=== PATIENT | female | born 1950 | race Caucasian/White ===

== ENCOUNTER 2020-06-26 12:28 | Outpatient (CLI) | payer MEDICARE, SELFPAY ==
--- NOTE | 2020-06-26 12:39 | US_ITS ---
WS: [id number] RENAL ULTRASOUND Urinary bladder. HISTORY: CHRONIC KIDNEY DZ-STAGE 3 COMPARISON: None available. TECHNIQUE: 2-D and color Doppler imaging of the kidney submitted. Right kidney: 9.8 cm x 4.8 cm x 5.7 cm. Normal echogenicity with no hydronephrosis or mass. Left kidney: 9.8 cm x 5.3 cm x 5.4 cm. Normal echogenicity with no hydronephrosis or mass. Aorta: Normal. Urinary Bladder: Nondistended bladder. No free fluid. US/US renal BI* [id number] IMPRESSION: Normal renal ultrasound. Nondistended urinary bladder.
== END 2020-06-26 12:29 | disposition home or self-care (01) ==
LOC: US 12:28
PROVIDERS: PCP Nurse Practitioner Family; Visit Provider Internal Medicine Nephrology
DX: N18.30 Chronic kidney disease, stage 3 unspecified (principal)
CPT/HCPCS: 76770

== ENCOUNTER 2020-07-30 15:29 | Outpatient (CLI) | payer MEDICARE, SELFPAY ==
--- NOTE | 2020-07-30 15:34 | XR_ITS ---
WS: [id number] Bone mineral density performed on a [employer], today Clinical data: ASYMPTOMATIC POSTMENOPAUSAL STATUS COMPARISON STUDY: DEXA scan, 07/22/2018. Findings: The first 4 lumbar vertebral bodies demonstrated the bone mineral density of 1.331 g/sq cm for a nettie g adult T score of 1.1. Measurement of the left hip reveals a bone mineral density of 1.074 g/cm2 with a young adult T score of 0.5. Measurement of the right hip reveals the bone mineral density of 0.964 g/cm2 for young adult T score of -0.3. XR/XR DEXA axial skeleton* [id number] Impression: 1. The bone mineral density of the lumbar spine was normal and showed slight im provement in bone mineral density compared to the prior study. 2. The bone mineral density of both hips is normal but there was a decrease in the bone mineral density compared to the prior study.
== END 2020-07-30 15:30 | disposition home or self-care (01) ==
PROVIDERS: PCP Internal Medicine; Visit Provider Internal Medicine
DX: Z12.31 Encounter for screening mammogram for malignant neoplasm of breast (principal); Z78.0 Asymptomatic menopausal state
CPT/HCPCS: 77080

== ENCOUNTER 2021-06-24 15:01 | Outpatient (CLI) | payer MEDICARE, SELFPAY ==
--- NOTE | 2021-06-24 15:06 | MM_ITS ---
WS: [id number] BILATERAL SCREENING DIGITAL MAMMOGRAM WITH CAD HISTORY: SCREENING COMPARISON: 2017 Bilateral CC and MLO views submitted. Computer aided detection analyzed. Breast composition: The breasts are almost entirely fatty. No suspicious masses, microcalcifications or architectural distortion. Benign calcifications in each breast. MM/[place] [id number] IMPRESSION: BI-RADS: 2-Benign FOLLOW UP: 1 Year Follow-up
== END 2021-06-24 15:02 | disposition home or self-care (01) ==
LOC: RADSHAW 15:04
PROVIDERS: PCP Internal Medicine; Visit Provider Nurse Practitioner Family
DX: Z12.31 Encounter for screening mammogram for malignant neoplasm of breast (principal)
CPT/HCPCS: 77067

== ENCOUNTER 2022-08-17 08:11 | Outpatient (CLI) | payer MEDICARE, SELFPAY ==
--- NOTE | 2022-08-17 08:21 | MM_ITS ---
WS: [id number] BILATERAL SCREENING DIGITAL TOMOSYNTHESIS MAMMOGRAM WITH CAD HISTORY: SCREENING COMPARISON: 06/24/2021 Bilateral CC and MLO views with tomosynthesis and synthetic mammography submitted. Computer aided det ection analyzed. Breast composition: The breasts are almost entirely fatty. No suspicious masses, microcalcifications or architectural distortion. Benign calcifications in each breast. MM/[place] [id number] IMPRESSION: BI-RADS: 2-Benign FOLLOW UP: 1 Year Follow-up
== END 2022-08-17 08:12 | disposition home or self-care (01) ==
LOC: RAD 08:12
PROVIDERS: PCP Internal Medicine; Visit Provider Internal Medicine
DX: Z12.31 Encounter for screening mammogram for malignant neoplasm of breast (principal)
CPT/HCPCS: 77063; 77067

== ENCOUNTER 2022-08-20 12:28 | Outpatient (CLI) | payer MEDICARE, SELFPAY ==
--- NOTE | 2022-08-20 12:42 | XR_ITS ---
WS: [email or web address] SCREENING DEXA SCAN [employer] CLINICAL INFORMATION: ASYMPTOMATIC POSTMENOPAUSAL COMPARISON: July 30, 2020 FINDINGS: The L1-L4 bone mineral density measures 1.307 g/cm2. This corresponds to a T score score of 1.1 and Z score of 1.9. Left femoral neck bone mineral density measures 1.086 g/cm2. This corresponds to a T score of 0.6 and Z score of 1.6. Right femoral neck bone mineral density measures 1.111 g/cm2. This corresponds to a T score 0.8of and Z score of 1.8. Mean femoral neck bone mineral density measures 1.098 g/cm2. This corresponds to a T score of 0.7 and Z score of 1.7. XR/XR DEXA axial skeleton* [id number] IMPRESSION: Normal bone mineralization. Patient's FRAX calculated 10 year probability for major osteoporotic fracture i s 6.9 % and osteoporotic hip fracture is 0.5%. Bone mineral density lumbar spine has increased 0.8% since 2019. Bone mineral density femoral necks has increased 7.8% since 2020.
== END 2022-08-20 12:29 | disposition home or self-care (01) ==
LOC: RAD 12:29
PROVIDERS: PCP Internal Medicine; Visit Provider Internal Medicine
DX: Z78.0 Asymptomatic menopausal state (principal)
CPT/HCPCS: 77080

== ENCOUNTER → 2024-01-31 15:29 | Outpatient (BNVA) | payer MEDICARE, SELFPAY | PROVIDERS: PCP Internal Medicine; Visit Provider Nurse Practitioner Family | DX: L71.8 Other rosacea (principal); L57.0 Actinic keratosis; L82.0 Inflamed seborrheic keratosis; L82.1 Other seborrheic keratosis; D22.5 Melanocytic nevi of trunk; D22.62 Melanocytic nevi of left upper limb, including shoulder | CPT/HCPCS: 17000; 17110; 99204 ==

== ENCOUNTER 2024-05-04 10:09 | Outpatient (CLI) | payer MEDICARE, SELFPAY ==
--- NOTE | 2024-05-04 10:15 | CT_ITS ---
WS: [id number] CT NECK WITH CONTRAST HISTORY: DYSPHAGIA TECHNIQUE: Contiguous 2 mm axial images are performed through the neck with intravenous contrast. Sag ittal and coronal reformats are also submitted. All CT scans at [facility] use at least one o f these dose optimization techniques: automated exposure control; mA and/or kV adjustment per patient size (includes targeted exams where dose is matched to clinical indication); or iterative reconstruc tion. CONTRAST: CONTRAST: Omnipaque 350; 100 mL IV. DLP: 202.93 mGy.cm COMPARISON: None available. Nasopharynx, oropharynx, hypopharynx and larynx are unremarkable. No soft tissue masses or abnormal e nhancement. Torus tubarius and fossa of Rosenmuller and parapharyngeal fat are normal. No significant lymphadenopathy is identified. Thyroid gland and salivary glands are normally enhancing with no masses. Mild increase in the cervical lordosis. Mild cervical spondylosis. Atherosclerotic plaque in the cavernous carotid arteries. No occlusion. Visualized paranasal sinuses and mastoid air cells are normal. Lung apices are clear. CT/CT neck w con* [id number] IMPRESSION: 1. No laryngeal mass or obstruction. 2. No cervical chain lymphadenopathy. 3. No neck mass.
[2024-05-04] MEDS: iohexol 350 mg/mL 500 mL Btl (per mL) IV (11:37)
== END 2024-05-04 10:10 | disposition home or self-care (01) ==
LOC: RAD 10:10
PROVIDERS: PCP Internal Medicine; Visit Provider Internal Medicine
DX: R13.10 Dysphagia, unspecified (principal)
CPT/HCPCS: 70491; Q9967

== ENCOUNTER 2024-05-10 10:56 | Outpatient (CLI) | payer MEDICARE, SELFPAY ==
--- NOTE | 2024-05-10 11:01 | FL_ITS ---
WS: [id number] Modified barium swallow, 05/10/2024 Clinical Data: Other dysphagia Comparison: None. Fluoroscopy time: 3min [id number] # of spot films: 0 Findings: The patient shows normal oral function with minimal residual which cleared with double swallows. The pharyngeal phase also showed minimal residual at the tongue and vallecula which cleared with swallowi ng. There is no aspiration or penetration. There is normal flow into the esophagus. However the esoph elsa showed poor motility and the barium tablet passed extremely slowly into the stomach. FL/FL barium swallow modifd [id number] Impression: 1. Normal oral and pharyngeal function without aspiration or penetration. 2. Poor esophageal motility with slow propulsion of the barium tablet.
== END 2024-05-10 10:57 | disposition home or self-care (01) ==
LOC: RAD 10:57
PROVIDERS: PCP Internal Medicine; Visit Provider Internal Medicine
DX: R13.19 Other dysphagia (principal)
CPT/HCPCS: 74230; 92611

== ENCOUNTER → 2024-07-13 15:15 | Outpatient (BNVA) | payer MEDICARE, SELFPAY | PROVIDERS: PCP Internal Medicine; Visit Provider Nurse Practitioner Family | DX: L57.0 Actinic keratosis (principal); L91.8 Other hypertrophic disorders of the skin; L71.8 Other rosacea | CPT/HCPCS: 17000; 17110; 99214 ==